=== PATIENT | female | born 1975 | race Hispanic/Latino ===

== ENCOUNTER 2020-03-15 14:42 | Emergency (ER) | payer OTHER ==
[2020-03-15 15:24] LABS: BASOPHILS % (AUTO) 0.3 % (0.0-5.0); EOSINOPHILS % (AUTO) 1.2 % (0.0-8.0); HEMATOCRIT 39.7 % (36-48); LYMPHOCYTES % (AUTO) 25.8 % (21.0-51.0); MEAN CORPUSCULAR HEMOGLOBIN 30.8 pg (27.0-33.0); MEAN CORPUSCULAR VOLUME 87.8 fL (79-99); MONOCYTES % (AUTO) 4.7 % (3.0-13.0); NEUTROPHILS % (AUTO) 67.7 % (40.0-77.0); PLATELET COUNT (AUTO) 200 K/uL (130-400); RED BLOOD CELL COUNT(AUTO) 4.52 MIL/uL (4.00-5.50); RED CELL DISTRIBUTION WIDTH 12.2 % (11.0-15.5); WHITE BLOOD COUNT (AUTO) 7.7 K/uL (4.8-10.8)
[2020-03-15 15:30] LABS: APPEARANCE,URINE Clear (CLEAR); BILIRUBIN,URINE Negative (NEGATIVE); COLOR,URINE Yellow (YELLOW); GLUCOSE, URINE (UA) Negative (NEGATIVE); KETONES,URINE Negative (NEGATIVE); LEUKOCYTE ESTERASE ,URINE Negative (NEGATIVE); NITRATE,URINE Negative (NEGATIVE); OCCULT BLOOD,URINE Moderate (NEGATIVE); PROTEIN,URINE Negative (NEGATIVE); UROBILINOGEN,URINE 0.2 mg/dL (0.2-1.0)
[2020-03-15 15:32] LABS: HCG,QUAL RESULT NEGATIVE (NEGATIVE)
[2020-03-15 15:38] LABS: CREATININE 0.9 mg/dL (0.5-1.5); POTASSIUM 3.8 mmol/L (3.5-5.1)
[2020-03-15 15:42] LABS: BACTERIA,URINE Few /HPF (None Seen); SQUAMOUS EPITHELIAL CELL,UR Moderate /HPF (0-2)
[2020-03-15 15:43] LABS: ALBUMIN 3.6 g/dL (3.5-5.0); BILIRUBIN,TOTAL 0.3 mg/dL (0.2-1.0); MUCUS,URINE Few LPF (None Seen); SPERM,URINE Few /HPF (None Seen); TOTAL PROTEIN, SERUM 7.5 g/dL (6.0-8.3)
[2020-03-15] MEDS ORDERED: ONDANSETRON HCL 4 MG/2 ML VIAL ONE (15:46)
[2020-03-15] MEDS ORDERED: DICYCLOMINE HCL 10 MG/ML 2ML AMP IM ONE (15:46)
[2020-03-15] MEDS ORDERED: KETOROLAC TROMETHAMINE 30MG/ML ONE (15:47)
[2020-03-15] MEDS ORDERED: MAG HYDROX/AL HYDROX/SIMETH ES 30 ML SUSP UDCUP ONE (16:04)
[2020-03-15] MEDS ORDERED: LIDOCAINE HCL 2% VISCOUS 15 ML UDCUP ONE (16:04)
== END 2020-03-15 16:28 | disposition home or self-care (01) ==
LOC: EDH 14:42
DX: R10.11 Right upper quadrant pain (principal); R10.13 Epigastric pain; Z98.890 Other specified postprocedural states
CPT/HCPCS: 36415; 76705; 80053; 81001; 81025; 83690; 85025; 96372; 96374; 96375; 99285; J0500; J1885; J2405

== ENCOUNTER 2021-06-18 00:16 | Emergency (ER) | payer OTHER ==
[~2021-06-18] VITALS: Ht 165.1 cm; Wt 80.7 kg
[2021-06-18] MEDS ORDERED: 0.9%NACL 1000ML 1,000 ML IV ONE (02:00)
[2021-06-18] MEDS ORDERED: METOCLOPRAMIDE 10 MG/2 ML VIAL IVP ONE (02:00)
[2021-06-18] MEDS ORDERED: ONDANSETRON 4MG INJ IVP ONE (02:00)
[2021-06-18] MEDS ORDERED: ORPHENADRINE CITRATE 30 MG/ML ML IV ONE (02:00)
[2021-06-18] MEDS ORDERED: KETOROLAC 30MG VIAL (30MG/ML) IV ONE (02:00)
[2021-06-18 02:10] LABS: BASOPHILS % (AUTO) 0.5 % (0.0-5.0); EOSINOPHILS % (AUTO) 1.3 % (0.0-8.0); HEMATOCRIT 40.6 % (36-48); LYMPHOCYTES % (AUTO) 27.2 % (21.0-51.0); MEAN CORPUSCULAR HEMOGLOBIN 30.5 pg (27.0-33.0); MEAN CORPUSCULAR HGB CONC 34.7 g/dL (32.0-36.0); MEAN CORPUSCULAR VOLUME 87.9 fL (79-99); MONOCYTES % (AUTO) 7.9 % (3.0-13.0); NEUTROPHILS % (AUTO) 62.9 % (40.0-77.0); PLATELET COUNT (AUTO) 198 K/uL (130-400); RED BLOOD CELL COUNT(AUTO) 4.62 MIL/uL (4.00-5.50); RED CELL DISTRIBUTION WIDTH 13.2 % (11.0-15.5); WHITE BLOOD COUNT (AUTO) 9.5 K/uL (4.8-10.8)
[2021-06-18 02:12] LABS: APPEARANCE,URINE Clear (CLEAR); BILIRUBIN,URINE Negative (NEGATIVE); COLOR,URINE Yellow (YELLOW); GLUCOSE, URINE (UA) Negative (NEGATIVE); KETONES,URINE Negative (NEGATIVE); LEUKOCYTE ESTERASE ,URINE Negative (NEGATIVE); NITRATE,URINE Negative (NEGATIVE); OCCULT BLOOD,URINE Trace (NEGATIVE); PH,URINE 6.5 (5.0-8.0); PROTEIN,URINE Negative (NEGATIVE); UROBILINOGEN,URINE 0.2 mg/dL (0.2-1.0)
[2021-06-18 02:13] LABS: HCG,QUAL RESULT NEGATIVE (NEGATIVE)
[2021-06-18 02:17] LABS: BACTERIA,URINE None Seen /HPF (None Seen); RBC,URINE None Seen /HPF (0-1); SQUAMOUS EPITHELIAL CELL,UR Few /HPF (0-2); WBC,URINE None Seen /HPF (0-1)
[2021-06-18 02:18] LABS: CREATININE 0.9 mg/dL (0.5-1.5); POTASSIUM 4.1 mmol/L (3.5-5.1)
[2021-06-18 02:23] LABS: ALBUMIN 3.9 g/dL (3.5-5.0); BILIRUBIN,TOTAL 0.2 mg/dL (0.2-1.0); TOTAL PROTEIN, SERUM 7.8 g/dL (6.0-8.3)
[2021-06-18] MEDS ORDERED: MELO7.5T12 PO (02:51)
[2021-06-18] MEDS ORDERED: LIDOP TP (02:51)
[2021-06-18] MEDS ORDERED: CYCL-309 PO (02:51)
[2021-06-18 03:04] VITALS: BP 141/72
== END 2021-06-18 03:12 | disposition home or self-care (01) ==
LOC: EDH 00:16
DX: M62.838 Other muscle spasm (principal); M54.6 Pain in thoracic spine; R11.0 Nausea; Z79.1 Long term (current) use of non-steroidal anti-inflammatories (NSAID); Z79.899 Other long term (current) drug therapy; Z87.442 Personal history of urinary calculi
CPT/HCPCS: 36415; 80053; 81001; 81025; 83690; 84484; 85025; 93005; 96361; 96374; 96375; 99284; J1885; J2360; J2405; J2765; J7030

== ENCOUNTER 2022-10-31 21:40 | Emergency (ER) | payer OTHER, SELFPAY ==
[~2022-10-31] VITALS: Ht 165.1 cm; Wt 5.2 kg
[~2022-10-31 21:40] MED LIST: CYCL-309 PO; LIDOP TP; MELO7.5T12 PO
[2022-10-31] MEDS ORDERED: KETOROLAC 30MG VIAL (30MG/ML) IVP ONE (22:30)
[2022-10-31] MEDS ORDERED: ONDANSETRON 4MG INJ IVP ONE (22:30)
[2022-10-31] MEDS ORDERED: LACTATED RINGERS 1000ML 1,000 ML IV ONE (22:30)
[2022-10-31 23:08] LABS: CREATININE 0.8 mg/dL (0.5-1.5); POTASSIUM 3.5 mmol/L (3.5-5.1)
[2022-10-31 23:12] LABS: BASOPHILS % (AUTO) 0.5 % (0.0-5.0); EOSINOPHILS % (AUTO) 0.7 % (0.0-8.0); HEMATOCRIT 39.6 % (36-48); MEAN CORPUSCULAR HEMOGLOBIN 29.5 pg (27.0-33.0); MEAN CORPUSCULAR HGB CONC 34.1 g/dL (32.0-36.0); MEAN CORPUSCULAR VOLUME 86.7 fL (79-99); MONOCYTES % (AUTO) 3.6 % (3.0-13.0); NEUTROPHILS % (AUTO) 83.8 % (40.0-77.0); PLATELET COUNT (AUTO) 210 K/uL (130-400); RED BLOOD CELL COUNT(AUTO) 4.57 MIL/uL (4.00-5.50); RED CELL DISTRIBUTION WIDTH 13.1 % (11.0-15.5); WHITE BLOOD COUNT (AUTO) 12.1 K/uL (4.8-10.8)
[2022-10-31 23:13] LABS: ALBUMIN 3.7 g/dL (3.5-5.0); TOTAL PROTEIN, SERUM 7.8 g/dL (6.0-8.3)
[2022-10-31 23:17] LABS: APPEARANCE,URINE CLEAR (CLEAR); BILIRUBIN,URINE NEGATIVE (NEGATIVE); COLOR,URINE COLORLESS (YELLOW); GLUCOSE, URINE (UA) NEGATIVE (NEGATIVE); KETONES,URINE 40 mg/dL (NEGATIVE); LEUKOCYTE ESTERASE ,URINE NEGATIVE Leu/uL (NEGATIVE); NITRATE,URINE NEGATIVE (NEGATIVE); PH,URINE 7.5 (5.0-8.0); PROTEIN,URINE NEGATIVE (NEGATIVE); UROBILINOGEN,URINE 0.2 mg/dL (0.2-1.0)
[2022-10-31 23:19] LABS: HCG,QUALITATIVE URINE NEGATIVE (NEGATIVE)
[2022-10-31 23:21] LABS: MUCUS,URINE RARE LPF (None Seen); SQUAMOUS EPITHELIAL CELL,UR RARE /HPF (0-2)
[2022-10-31 23:58] VITALS: BP 150/81
[2022-11-01] MEDS ORDERED: CYCL-309 PO (00:06)
[2022-11-01] MEDS ORDERED: LIDOP TP (00:06)
[2022-11-01] MEDS ORDERED: ONDA-104 PO (00:06)
[2022-11-01] MEDS ORDERED: IBUP-1493 PO (00:06)
== END 2022-11-01 00:38 | disposition home or self-care (01) ==
LOC: EDH 21:40
DX: M54.50 Low back pain, unspecified (principal); R30.0 Dysuria; Z79.899 Other long term (current) drug therapy; Z98.890 Other specified postprocedural states
CPT/HCPCS: 99285; 74176; 96374; 96361; 96375; 80053; 85025; 81001; 81025; 36415; J7120; J2405; J1885